=== PATIENT | male | born 1970 | race African-American/Black ===

== ENCOUNTER 2017-02-07 07:45 | Emergency (ER) ==
[2017-02-07 08:14] LABS: MANUAL DIFF NEEDED? NO
[2017-02-07 08:21] LABS: EOS# 0.34 X1000 (0.0-0.7); EOS% 4.7 % (0.0-10.0); HEMATOCRIT 41.4 % (42.0-52.0); HEMOGLOBIN 14.1 g/dL (14.0-18.0); IMM GRAN# 0.02 X1000 (0.0-0.04); IMM GRAN% 0.3 % (0.0-0.5); LYMPH# 2.72 X1000 (1.2-3.4); LYMPH% 37.3 % (20.5-51.1); MCH 30.2 PG (27-31); MCHC 34.1 g/dL (33-37); MCV 88.7 FL (81-99); MONO# 0.68 X1000 (0.11-0.59); MONO% 9.3 % (1.7-9.3); MPV 10.5 FL (7.4-10.4); NEUT% 47.4 % (42.2-75.2); PLT 271 X1000 (130-400); RBC 4.67 XMIL (4.7-6.1)
[2017-02-07 08:32] LABS: INR 0.98; PTT 24.2 Seconds (22.0-36.0)
[2017-02-07 08:35] LABS: AGAP 13; ALKALINE PHOSPHATASE 78 U/L (32-122); BUN 12 mg/dL (8-22); CALCIUM 8.5 mg/dL (8.8-10.2); CHLORIDE 103 mmol/L (98-107); COSMO 277; GOT 23 U/L (10-34); GPT 21 U/L (10-44); MAGNESIUM 1.7 mg/dL (1.5-2.7); SODIUM 138 mmol/L (136-145); TCO2 22 mmol/L (25-35); TOTAL BILIRUBIN 0.22 mg/dL (0.20-1.00); TOTAL PROTEIN 7.2 g/dL (6.3-8.3)
[2017-02-07 08:39] LABS: CK PROFILE 497 U/L (24-204)
--- NOTE | 2017-02-07 08:58 | ED EKG INTERP ---
EKG Interpretation - EKG Time of EKG reading by physician:: 08:06 EKG Read and Signed by:: Marcial Quintana EKG Interpretation (*Must complete 3 of following elements*): Abnormal Rate: 82 Rhythm: nsr [place]: normal QRS: normal Comments: cannot rule out inferior infarct
[2017-02-07 09:07] LABS: CK INDEX 0.4 (0.0-2.5)
--- NOTE | 2017-02-07 11:21 | EKG Report ---
Test Performed on : 02/07/2017 08:06:12 AM Test Reason : Chest Pain Blood Pressure : / mmHG Vent. Rate : 082 BPM Atrial Rate : 082 BPM P-R Int : 144 ms QRS Dur : 098 ms QT Int : 350 ms P-R-T Axes : 054 041 -12 degrees QTc Int : 408 ms Normal sinus rhythm. Cannot rule out Inferior infarct , age undetermined Abnormal ECG When compared with ECG of 12-JUN-2013 21:24, Minimal criteria for Inferior infarct are now present Unconfirmed Result
--- NOTE | 2017-02-07 11:43 | PROVIDER DOCUMENTATION ---
HPI-EENT General - General Chief Complaint: Dizziness Stated Complaint: dizziness Time Seen by Provider: 02/07/17 11:35 Source: patient Unable to obtain history due to:: urgency Allergies/Adverse Reactions: Patient Allergies Allergy/AdvReac Type Severity Reaction Status Date / Time Penicillins Allergy Unknown Unknown Verified 02/07/17 08:09 Home Medications: Home Medication List Medication Instructions Recorded Confirmed Last Taken Type Azithromycin [Zithromax Z-Dhaval] 250 mg PO DIRECTED #1 pkg 02/07/17 Unknown Rx Methylprednisolone [Medrol Dosepak] 4 mg PO DIRECTED #1 package 02/07/17 Unknown Rx - History of Present Illness-EENT General Nature of Presenting Problem: C/O DIZZINESS INTERMITTENTLY AND SINUS PAIN AND PRESSURE FOR ON MONTH. EENT Location: reports: other (SINUS PAIN AND PRESSURE) Quality of Pain: reports: pressure (SINUS PAIN AND PRESSURE) Severity: reports: mild Onset/Duration: reports: other (ONE MONTH) Timing: reports: intermittent Prearrival Treatment: Initiated no prearrival treatment Associated Symptoms: denies: change in hearing, cough, drooling, ear drainage, facial pain/swelling Similar Symptoms Previously?: Yes (DID NOT SEEK MEDICAL TREATMENT) Recently seen or treated by another doctor?: No - Eyes Eye Problem Symptoms: denies: eye pain, decrease vision, blurred vision, double vision, curtain, other, burning, itching, sensitivity to light, redness, matting , orbital swelling, eyelid swelling, foreign body sensation Apparent Injury?: No - Ears Ear Problem Context: denies: none - Nose Nose Problem Symptoms: other (NASAL CONGESTION) - Throat/Dental Throat/Dental Problem Symptoms: reports: none Review of Systems - Adult - REVIEW OF SYSTEMS - ADULT Constitutional: reports: see HPI Eyes: reports: no symptoms reported Ears, Nose, Mouth & Throat: reports: other (BILATERAL PRESSURE SENSTATION TO EARS.) Cardiovascular: reports: no symptoms reported Respiratory: reports: no symptoms reported Gastrointestinal: reports: no symptoms reported Genitourinary: reports: no symptoms reported Musculoskeletal: reports: no symptoms reported Integumentary: reports: no symptoms reported Neurological: reports: dizziness/vertigo Psychiatric: reports: no symptoms reported Endocrine: reports: no symptoms reported Hematologic/Lymphatic: reports: no symptoms reported Allergic/Immunologic: reports: no symptoms reported All Other Systems: Reviewed and Negative Past History - Adult - PAST MEDICAL HISTORY-ADULT Review of Records: reports: Nursing Assessment Review Major Childhood Illnesses: reports: denies history Cardiovascular: reports: denies history Respiratory: reports: denies history Gastrointestinal: reports: denies history Obstetrical/Gynecological: reports: denies history Genitourinary: reports: denies history Musculoskeletal: reports: denies history Neurological: reports: denies history Endocrine/Immune: reports: other (BORDERLINE DIABETES) Other Conditions: reports: denies history - PRIOR SURGERIES/PROCEDURES Surgical/Procedure History: reports: none Physical Exam- EENT - Physical Exam EENT Initial Vital Signs Reviewed: Yes General Appearance: appears well, alert Eye Exam: bilateral eye: normal inspection Ear Exam: bilateral ear: TM bulging Nasal Exam: other (BILATERAL TURBINATE SWELLING WITH YELLOW DISCHARGE.) Progress - EKG 1 Time of EKG reading by physician:: 08:06 EKG Read and Signed by:: Marcial Quintana EKG Interpretation (*Must complete 3 of following elements*): Abnormal Rate: 82 Rhythm: NSR QRS: normal [place] Interval: normal ST Wave: non-specific ST changes Departure - Departure Time of Disposition Order: 11:48 DIAGNOSIS: Sinusitis Qualifiers: Sinusitis location: unspecified location Chronicity: acute Recurrence: not specified as recurrent Qualified Code(s): J01.90 - Acute sinusitis, unspecified Allergic rhinitis Qualifiers: Allergic rhinitis trigger: other Allergic rhinitis seasonality: unspecified seasonality Qualified Code(s): J30.89 - Other allergic rhinitis Eustachian tube dysfunction Qualifiers: Laterality: bilateral Qualified Code(s): H69.83 - Other specified disorders of Eustachian tube, bilateral Disposition: HOME 01 Certified Medical Emergency: Emergent Condition: Stable Additional Instructions: TAKE PREDNISONE WITH FOOD. TAKE ALL OF ANTIBIOTIC. INCREASE FLUIDS AND REST. FOLLOW UP WITH YOUR PCP FOR FURTHER EVALUATION AND MANAGEMENT. ED Follow Up Instructions: You have been treated by a care provider in the Emergency Department. These instructions are being provided to you so you can have an understanding of how to care for yourself upon discharge. Upon discharge from the Emergency Department, you are responsible for making arrangements for follow-up care by a physician of your choice. Take all prescribed medications as directed. Return to the Emergency Department immediately for any new or worsening symptoms. You may call the Physician Referral phone number at [phone] to obtain a list of Physicians who are taking new patients. Prescriptions: Methylprednisolone [Medrol Dosepak] 4 mg PO DIRECTED #1 package Azithromycin [Zithromax Z-Dhaval] 250 mg PO DIRECTED #1 pkg
[2017-02-07 12:01] VITALS: BP 134/86
== END 2017-02-07 12:01 | disposition home or self-care (01) ==
LOC: ED 07:45
DX: J01.90 Acute sinusitis, unspecified (principal); J30.89 Other allergic rhinitis; H69.83 Other specified disorders of Eustachian tube, bilateral; R94.31 Abnormal electrocardiogram [ECG] [EKG]; R42 Dizziness and giddiness; J34.89 Other specified disorders of nose and nasal sinuses; H92.03 Otalgia, bilateral
CPT/HCPCS: 80053; 82550; 82553; 83735; 83880; 84484; 85025; 85379; 85610; 85730; 93005